=== PATIENT | male | born 1960 | race Caucasian/White ===

== ENCOUNTER → 2023-10-22 13:42 | Outpatient (REF) | payer OTHER, SELFPAY | LOC: WOUND 13:42 | PROVIDERS: ATTENDING PHYSICIAN Surgery; FAMILY PHYSICIAN Internal Medicine | DX: E11.621 Type 2 diabetes mellitus with foot ulcer (principal); L97.512 Non-pressure chronic ulcer of other part of right foot with fat layer exposed; I87.2 Venous insufficiency (chronic) (peripheral); I73.9 Peripheral vascular disease, unspecified; N02.B9 Other recurrent and persistent immunoglobulin A nephropathy; F84.0 Autistic disorder; E11.42 Type 2 diabetes mellitus with diabetic polyneuropathy; I25.10 Atherosclerotic heart disease of native coronary artery without angina pectoris; I42.0 Dilated cardiomyopathy | CPT/HCPCS: 11042; 73630; 99204 ==

== ENCOUNTER → 2023-10-29 13:31 | Outpatient (REF) | payer OTHER, SELFPAY | LOC: WOUND 13:31 | PROVIDERS: ATTENDING PHYSICIAN Surgery; FAMILY PHYSICIAN Internal Medicine | DX: E11.621 Type 2 diabetes mellitus with foot ulcer (principal); L97.512 Non-pressure chronic ulcer of other part of right foot with fat layer exposed; I87.2 Venous insufficiency (chronic) (peripheral); I73.9 Peripheral vascular disease, unspecified; N02.B9 Other recurrent and persistent immunoglobulin A nephropathy; F84.0 Autistic disorder; E11.42 Type 2 diabetes mellitus with diabetic polyneuropathy; I25.10 Atherosclerotic heart disease of native coronary artery without angina pectoris; I42.0 Dilated cardiomyopathy | CPT/HCPCS: 11042 ==

== ENCOUNTER → 2023-12-18 12:44 | Outpatient (REF) | payer OTHER, SELFPAY ==
--- NOTE | 2023-12-18 14:30 | CARDSERVLU ---
Echocardiogram with Lumason completed after protocol screening completed. Allergies verified.
Patent IV site: Right upper hand 22 G PC
IV site flushed with 0.9% NaCl pre and post administration.
Diluted bolus method utilized to enhance visualization of ventricular hernández.
Total volume given: _4___ mL
Patient tolerated all procedures well without complications.
Heplock D/c ed at 1410, site clear, no redness, no edema. Pressure held, no bleeding. 2x2 applied and taped.
== END ==
LOC: RCS 12:44
PROVIDERS: ATTENDING PHYSICIAN Nurse Practitioner; FAMILY PHYSICIAN Obstetrics & Gynecology
DX: I42.0 Dilated cardiomyopathy (principal)
CPT/HCPCS: 93306; Q9950

== ENCOUNTER → 2025-04-28 12:53 | Outpatient (REF) | payer OTHER, SELFPAY | LOC: RCS 12:53 | PROVIDERS: ATTENDING PHYSICIAN Internal Medicine Cardiovascular Disease; FAMILY PHYSICIAN Internal Medicine | DX: I42.0 Dilated cardiomyopathy (principal) | CPT/HCPCS: 93306; Q9950 ==